=== PATIENT | female | born 1970 | race Caucasian/White ===

== ENCOUNTER 2017-03-16 06:59 | Day surgery (SDC) | payer MEDICARE, MEDICAID ==
[2017-03-16] MEDS ORDERED: BUPIVACAINE 0.5% (5MG/ML) PF 30ML VIAL IVP ONE (07:00)
[2017-03-16] MEDS ORDERED: LIDOCAINE 2% MDV (20MG/ML) 20ML VIAL IV ONE (07:00)
[2017-03-16] MEDS ORDERED: PROPOFOL 10 MG/ML VIAL IV ONE (07:00)
[2017-03-16] MEDS ORDERED: BUPIVACAINE 0.75% W/EPI MPF 30ML VIAL IVP ONE (07:00)
[2017-03-16] MEDS ORDERED: DEXAMETHASONE PRESERVATIVE FREE 10MG/ML VIAL IV ONE (07:00)
[2017-03-16] MEDS ORDERED: MIDAZOLAM HCL 2MG/2ML VIAL IV ONE (07:00)
[2017-03-16] MEDS ORDERED: LIDOCAINE 1% W/EPI 1:200,000 MPF 30ML SQ ONE (07:00)
[2017-03-16] MEDS ORDERED: FENTANYL PF 100MCG/2ML VIAL IV ONE (07:00)
--- NOTE | 2017-03-16 15:19 | Operative Note - Ferro ---
DATE OF SURGERY: 03/16/17 PREOPERATIVE DIAGNOSIS: CERVICAL SPONDYLOSIS WITHOUT MYELOPATHY, ICD-10 CODE = M47.812. OPERATION: FLUOROSCOPICALLY-GUIDED INFILTRATIONAL BLOCK BILATERAL CERVICAL FACETS 4-5, 5-6, AND 6-7. SURGEON: BLADIMIR CAMPBELL D.O. ANESTHESIA: LOCAL SEDATION. ANESTHESIA PROVIDER: JADEN GENAO CRNA INDICATION: This patient presents with pain, which is primarily neck. Examination shows tenderness in the cervical spine. Range of motion does produce pain to the neck with extension. Diagnostics show diffuse spondylosis and disc abnormalities; the area of pain 4-5 through 6-7. PROCEDURE: Intravenous line, vital sign monitoring, IV sedation, prepped, draped, sterile technique. Cervical facet levels at 4-5, 5-6, and 6-7 marked and infiltrated. A 25-gauge, 3.5 inch needle into the facet. 1 mL of 0.5% Marcaine with Dexamethasone injected each of the sites bilaterally. All areas cleaned. Topical antibiotics. Sterile dressing applied. We will monitor and evaluate. cc: Dr. Narvaez JOB NUMBER: [id number] [facility]
== END 2017-03-16 08:26 | disposition home or self-care (01) ==
LOC: SUR 06:59
PROVIDERS: ATTEND Pain Medicine Interventional Pain Medicine
DX: M47.812 Spondylosis without myelopathy or radiculopathy, cervical region (principal)
CPT/HCPCS: 81025; 64490; 64491; 64492; 01936; J1100; J3010; J3490

== ENCOUNTER 2017-06-29 07:14 | Day surgery (SDC) | payer MEDICARE, MEDICAID ==
[2017-06-29] MEDS ORDERED: LIDOCAINE 2% MDV (20MG/ML) 20ML VIAL IV ONE (07:15)
[2017-06-29] MEDS ORDERED: MIDAZOLAM HCL 2MG/2ML VIAL IV ONE (07:15)
[2017-06-29] MEDS ORDERED: PROPOFOL 10 MG/ML VIAL IV ONE (07:15)
[2017-06-29] MEDS ORDERED: FENTANYL PF 100MCG/2ML VIAL IV ONE (07:15)
[2017-06-29] MEDS ORDERED: *PACU ONLY* KETAMINE HCL 10 MG/ML (20ML) VIAL IV ONE (07:15)
--- NOTE | 2017-06-29 15:48 | Operative Note - Ferro ---
DATE OF SURGERY: 06/29/17 PREOPERATIVE DIAGNOSES: 1. LUMBAR SPONDYLOSIS WITHOUT MYELOPATHY, ICD-10 CODE = M47.816. 2. SACROILIITIS, ICD-10 CODE = M46.1. OPERATION: FLUOROSCOPICALLY-GUIDED INFILTRATIONAL BLOCK BILATERAL SI JOINTS. SURGEON: BLADIMIR CAMPBELL D.O. ANESTHESIA: LOCAL SEDATION. ANESTHESIA PROVIDER: JUAN C HIDALGO CRNA INDICATION: This patient presents with pain, which starts in the back but extends towards the hips. Examination shows the area of tenderness in the lumbar spine lateral to the midline and directly over the SI joints. Diagnostics confirm multiple levels of lumbar spondylosis. PROCEDURE: Intravenous line, IV sedation, prepped and draped in sterile technique. Under imaging, skin over the SI joints in the area of pain was identified, marked, and infiltrated then a 22-gauge, 3.5 inch needle into the SI with 3 mL of 0.5% Marcaine with Dexamethasone injected. This was repeated bilateral. Areas cleaned. Topical antibiotics. Sterile dressing was applied. We will monitor and evaluate. cc: Dr. Almeida JOB NUMBER: [id number] MTDD
== END 2017-06-29 09:00 | disposition home or self-care (01) ==
LOC: SUR 07:14
PROVIDERS: ATTEND Pain Medicine Interventional Pain Medicine
DX: M47.816 Spondylosis without myelopathy or radiculopathy, lumbar region (principal); M46.1 Sacroiliitis, not elsewhere classified; I10 Essential (primary) hypertension
CPT/HCPCS: 62323; 01936; 81025; J3010

== ENCOUNTER 2017-07-20 07:04 | Day surgery (SDC) | payer MEDICARE, MEDICAID ==
[2017-07-20] MEDS ORDERED: FENTANYL PF 100MCG/2ML VIAL IV ONE (07:05)
[2017-07-20] MEDS ORDERED: MIDAZOLAM HCL 2MG/2ML VIAL IV ONE (07:05)
[2017-07-20] MEDS ORDERED: 0.9 % SODIUM CHLORIDE 10 ML VIAL IVP ONE (07:05)
[2017-07-20] MEDS ORDERED: PROPOFOL 10 MG/ML VIAL IV ONE (07:05)
[2017-07-20] MEDS ORDERED: BUPIVACAINE 0.5% W/EPI MPF 30 ML VIAL IVP ONE (07:05)
[2017-07-20] MEDS ORDERED: BUPIVACAINE 0.25% MPF 30ML VIAL IVP ONE (07:05)
[2017-07-20] MEDS ORDERED: LIDOCAINE 1% W/EPI 1:200,000 MPF 30ML SQ ONE (07:05)
[2017-07-20] MEDS ORDERED: DEXAMETHASONE PRESERVATIVE FREE 10MG/ML VIAL IV ONE (07:05)
--- NOTE | 2017-07-20 17:45 | Operative Note - Ferro ---
DATE OF SURGERY: 07/20/17 PREOPERATIVE DIAGNOSIS: LUMBAR RADICULITIS, ICD-10 CODE = M54.16 AND M54.17. OPERATION: FLUOROSCOPICALLY-GUIDED BILATERAL TRANSFORAMINAL SELECTIVE SEGMENTAL EPIDURAL INJECTION L4/5. SURGEON: BLADIMIR CAMPBELL D.O. ANESTHESIA: LOCAL SEDATION. ANESTHESIA PROVIDER: LEXUS INDICATION: This patient presents with pain, which starts in the back but then extends into the hips and outer front surface of both legs consistent with an L4 pattern. Diagnostic studies were not available for review. Previous documentation suggests a 4/5 disc, which would be consistent with the pattern of pain. PROCEDURE: Intravenous line, vital sign monitoring, IV sedation, prepped and draped sterile technique. Under imaging, lumbar foraminal opening bilaterally at L4/5 identified and marked, infiltrated. Two separate 20-gauge needles one left and one right of the midline. 5 mL of 0.125% Marcaine with Dexamethasone injected. Needle removed, back cleaned, topical antibiotic, and sterile dressing was applied. We will monitor and evaluate. cc: Dr. Narvaez JOB NUMBER: [id number] MTDD
== END 2017-07-20 09:08 | disposition home or self-care (01) ==
LOC: SUR 07:04
PROVIDERS: ATTEND Pain Medicine Interventional Pain Medicine
DX: M54.16 Radiculopathy, lumbar region (principal); M54.17 Radiculopathy, lumbosacral region; I10 Essential (primary) hypertension
CPT/HCPCS: 64483; 01936; 81025; J1100; J3010

== ENCOUNTER 2018-11-01 05:24 | Day surgery (SDC) | payer MEDICARE, MEDICAID ==
[2018-11-01] MEDS ORDERED: LIDOCAINE 2% MDV (20MG/ML) 20ML VIAL IV ONE (05:25)
[2018-11-01] MEDS ORDERED: FENTANYL PF 100MCG/2ML VIAL IV ONE (05:25)
[2018-11-01] MEDS ORDERED: PROPOFOL 10 MG/ML VIAL IV ONE (05:25)
[2018-11-01] MEDS ORDERED: MIDAZOLAM HCL 2MG/2ML VIAL IV ONE (05:25)
[2018-11-01] MEDS ORDERED: RINGERS SOLUTION,LACTATED 1,000 ML IV ONE (06:00)
[2018-11-01] MEDS ORDERED: LIDOCAINE 1% W/EPI 1:200,000 MPF 30ML SQ ONE (07:29)
[2018-11-01] MEDS ORDERED: BUPIVACAINE 0.5% (5MG/ML) PF 30ML VIAL SQ ONE (07:29)
[2018-11-01] MEDS ORDERED: BUPIVACAINE 0.5% W/EPI MPF 30 ML VIAL SQ ONE (07:29)
[2018-11-01] MEDS ORDERED: DEXAMETHASONE PRESERVATIVE FREE 10MG/ML VIAL SQ ONE (07:29)
--- NOTE | 2018-11-06 08:40 | Operative Note ---
DATE OF SURGERY: 11/01/2018 PREOPERATIVE DIAGNOSIS: Cervical spondylosis without myelopathy. ICD10 code M47.812. OPERATION: Fluoroscopic-guided infiltration of block bilateral cervical facets 4-5, 5-6, 6-7. SURGEON: Jb Corral DO ANESTHESIA: Local with sedation. ANESTHESIA PROVIDER: Thao Dueñas CRNA INDICATION: This patient presents with mid-to-low primary cervical spine pain. Examination shows tender cervical spine. Range of motion does cause pain in the neck with extension. Diagnostic studies show diffuse multilevel spondylitis change. PROCEDURE: Intravenous line, vital sign monitoring, IV sedation, prepped and draped in sterile technique. The cervical facets at 4-5, 5-6, and 6-7 were identified and marked bilaterally. Skin infiltrated. A 25-gauge 3-1/2 inch needle into the facet with 1 mL of 0.5% Marcaine and dexamethasone injected. This was repeated at each of the sites bilaterally. Areas cleaned. Topical antibiotic and sterile dressing applied. Will monitor and evaluate. CC: Dr. Lance CROFT
== END 2018-11-01 07:55 | disposition home or self-care (01) ==
LOC: SUR 05:24
PROVIDERS: ATTEND Pain Medicine Interventional Pain Medicine
DX: M47.812 Spondylosis without myelopathy or radiculopathy, cervical region (principal); I10 Essential (primary) hypertension; F17.210 Nicotine dependence, cigarettes, uncomplicated
CPT/HCPCS: 81025; J7120

== ENCOUNTER 2019-03-14 06:04 | Day surgery (SDC) | payer MEDICARE, MEDICAID ==
[2019-03-14] MEDS ORDERED: FENTANYL PF 100MCG/2ML VIAL IV ONE (06:05)
[2019-03-14] MEDS ORDERED: LIDOCAINE 2% MDV (20MG/ML) 20ML VIAL IV ONE (06:05)
[2019-03-14] MEDS ORDERED: PROPOFOL 10 MG/ML VIAL IV ONE (06:05)
[2019-03-14] MEDS ORDERED: MIDAZOLAM HCL 2MG/2ML VIAL IV ONE (06:05)
[2019-03-14] MEDS ORDERED: RINGERS SOLUTION,LACTATED 1,000 ML IV ONE (06:15)
[2019-03-14] MEDS ORDERED: DEXAMETHASONE PRESERVATIVE FREE 10MG/ML VIAL IM ONE (07:31)
[2019-03-14] MEDS ORDERED: LIDOCAINE 1% W/EPI 1:200,000 MPF 30ML SQ ONE (07:31)
[2019-03-14] MEDS ORDERED: BUPIVACAINE 0.5% W/EPI MPF 30 ML VIAL SQ ONE (07:31)
[2019-03-14] MEDS ORDERED: BUPIVACAINE 0.25% PF (2.5MG/ML) 10ML VIAL IM ONE (07:31)
--- NOTE | 2019-03-14 08:36 | Operative Note - [facility] ---
DATE OF SURGERY: 03/14/2019 PREOPERATIVE DIAGNOSIS: BILATERAL LUMBAR RADICULOPATHY, ICD-10 CODE M54.16 AND M54.17. OPERATION: FLUOROSCOPICALLY GUIDED BILATERAL TRANSFORAMINAL SELECTIVE SEGMENTAL EPIDURAL INJECTION S1. SURGEON: Jb Corral D.O. INDICATION: This patient presents with pain which starts in the back, but then extends into the hips and legs. Diagnostics do show diffuse spondylosis with multiple disks including L5-S1. The pattern of pain is L5 and in particular S1. PROCEDURE: Intravenous line, vital sign monitoring, IV sedation. Prepped and draped, sterile technique, under imaging the lumbar foraminal opening bilaterally at S1 identified and marked, infiltrated with two separate Tuohy needles under imaging into the foraminal opening, atraumatic. No blood. No CSF. 5 ml of 0.125% Marcaine with Dexamethasone was injected first left then right. Both needles were removed, back cleaned, topical antibiotic, sterile dressing applied. Will monitor and evaluate. Prior to the injection an epidurogram was performed at each with total volume 10 ml injected, 5 left and 5 right verifying appropriate flow characteristics and no vascular absorption. JOB NUMBER: [id number] MTDD
== END 2019-03-14 07:57 | disposition home or self-care (01) ==
LOC: SUR 06:04
PROVIDERS: ATTEND Pain Medicine Interventional Pain Medicine
DX: M54.16 Radiculopathy, lumbar region (principal); M54.17 Radiculopathy, lumbosacral region; I10 Essential (primary) hypertension; F17.210 Nicotine dependence, cigarettes, uncomplicated
CPT/HCPCS: 64483; 01936; Q9967; J1100; J3010; J7120